=== PATIENT | female | born 1995 | race Hispanic/Latino ===

== ENCOUNTER → 2016-12-17 | Day surgery (SDC) | payer OTHER ==
[~2016-12-17] VITALS: Ht 149.9 cm; Wt 83.9 kg
[~2016-12-17] MED LIST: AMOXICILLIN500 M2 PO; PROAIR HFA8.5 GM INH
--- NOTE | 2016-12-17 16:54 | Operative Report ---
Operative/Inv Procedure Report Surgery Date: 12/17/16 Name of Procedure: Bilateral breast reduction Pre-Operative Diagnosis: Symptomatic macromastia Post-Operative Diagnosis: Same Estimated Blood Loss: scant (200) Surgeon/Ceramic Painter: AMANDA TORRES MD Anesthesia: general endotracheal tube Operative/Procedure Note Note: Patient was counseled extensively regards to the procedure the alternatives the risks and expected outcomes as relates to request for surgical intervention to treat symptomatic macromastia. 2 surgical breast reduction. She was given a pass PS informed consent which she has returned sign. We had talked about infection bleeding pain and definite asymmetry scars and might be symptomatic or unsightly numbness of the nipple areolar complexes loss of the nipple areolar complex or breast skin. We also talked about numbness in the skin. Russians regarding her regarding the forms. Position for an inferior pedicle [place] pattern technique. This was done with a ruler. She was brought to the operating placed supine on the table of Venodyne boots were placed and then the chest was prepped and draped in usual sterile fashion. The inferior pedicle [place] pattern technique was performed resecting superior medial and lateral segments. The patient was put in the sitting position to assess for reclosure. The nipple areola complexes were then located in the sitting position. 3 layer closure was carried out of all incisions. End dictation
== END ==
LOC: STS 12-10 07:00
DX: N62 Hypertrophy of breast (principal); J45.909 Unspecified asthma, uncomplicated; E66.9 Obesity, unspecified; Z68.38 Body mass index [BMI] 38.0-38.9, adult; Z87.891 Personal history of nicotine dependence
CPT/HCPCS: 81025; 88305; J0131; J0690; J1200; J2250; J2405